=== PATIENT | male | born 2005 | race Caucasian/White ===

== ENCOUNTER 2025-01-22 20:01 | Emergency (ER) | payer BC, SELFPAY ==
[2025-01-22 20:02] VITALS: BP 131/84
--- NOTE | 2025-01-22 20:13 | ED.GENMED ---
History of Present Illness
General
Chief Complaint: Musculo-Skeletal Complaint
Source: patient
Exam Limitations: none
Time Seen by Provider: 01/22/25 20:09
Nursing documentation reviewed up to this point in time: agreed with
History of Present Illness
History of Present Illness:
20-year-old male with past medical history of GERD, asthma, ADHD, who presents emergency department today with concerns of right foot pain. Patient [place] [facility] [place] [place]. Patient
reports that in the game, you had to kick a soft ball as hard as possible to measure strength. Patient reports that when he kicked the ball, he immediately felt sharp pain in his foot. Patient states that when he went home and noticed that his
pain increased. Patient now has swelling in his right foot. He is under able to bear weight without significant pain. Patient currently does not have a orthopedics he follows with but states that he will find 1 associate with his healthcare
network. He denies any other injuries. He denies any falls. He did not take anything for the pain.
Past History
Past History
ED Past Medical History: None
ED Past Surgical History: None
Social History
Tobacco: Smoker (Vapor cigarette)
Alcohol: Occasional
Drug: Marijuana
Review of Systems
Review of Systems
All Other Systems: ROS reviewed and negative except as documented in HPI and ROS
Phy Exam
Physical Exam
Physical Exam:
General: Patient is well appearing and in no acute distress; non-toxic
Skin: Warm and dry, no rashes or lesions
Head: Normocephalic, atraumatic
Eyes: Sclera non-icteric. EOMs intact.
Cardiac: Regular rate
Peripheral Vascular: 2+ DP and PT pulses on the right
Musculoskeletal: Tenderness to palpation over the dorsum of the right foot. No palpable bony deformity. Pain to right lateral ankle with varus stress.
Neuro: CN II-XII intact, no focal neurologic deficits. Sensation intact.
Psychiatric: Appropriate mood and affect.
Course
Orders/Labs/Results
Orders:
Orders
01/22/25 20:44
Ketorolac [Toradol] 15 mg IM NOW STA
CR Ankle - Right Min 3 Views * Urgent
Reason For Exam: right ankle pain
CR Foot - Right Min 3 Views Urgent
Reason For Exam: right foot pain
01/22/25 21:38
Crutches-Treatment ONCE
Ortho Boot Right- Treatment ONCE
Short or tall?: Short
Vital Signs
Initial and Last Documented VS:
Initial Vital Signs
Temp Pulse Resp BP Pulse Ox
97.5 F 101 18 131/84 100
01/22/25 20:02 01/22/25 20:02 01/22/25 20:02 01/22/25 20:02 01/22/25 20:02
Last Documented Vital Signs
Temp Pulse Resp BP Pulse Ox
97.5 F 101 18 131/84 100
01/22/25 20:02 01/22/25 20:02 01/22/25 20:02 01/22/25 20:02 01/22/25 20:02
MDM/Problems Addressed
Differential Diagnosis Includes:
Metatarsal fracture, phalanx fracture, ankle sprain, contusion
MDM/Problems Addressed:
20-year-old male with past medical history of GERD, asthma, ADHD, who presents emergency department today with concerns of right foot pain. This started after kicking an ball of an arcade machine. He is unable to bear weight without a lot of pain.
Physical exam he does have swelling in his right foot and tenderness to palpation over the dorsum. He does have some ankle pain with range of motion. His ankle x-ray and foot x-ray was negative for any acute fracture or dislocation. Patient was
placed in Ortho boot and given crutches, return precautions discussed. Patient reports that he has been follow-up with an orthopedist within his network. Patient stable for discharge. Toradol did improve his symptoms.
*Critical Care Note
Total Time (30-74mins, 75-104mins- exclusive of procedures): Not Applicable
ED Attending Note
-
Portions of this chart may have been created with voice recognition software.� Occasional wrong word or��sound alike� substitutions may have occurred due to the inherent limitations of voice recognition software.
Discharge Plan
Departure
Patient Disposition: Home (Routine Discharge)
Date of Disposition: 01/22/25
Time of Disposition: 22:05
Patient with high blood pressure during this ER visit?: Yes
Condition: Good
Discharge Problem:
Acute foot pain, High ankle sprain
Instructions: Ankle sprain, How to Use Crutches, BLOOD PRESSURE
Prescriptions:
New
cyclobenzaprine 15 mg capsule,extended release 24hr
15 mg PO DAILY Qty: 8 0RF
No Action
guanfacine [Tenex] 1 MG tablet
2 mg PO DAILY
famotidine [Pepcid AC] 10 MG tablet,chewable
10 mg PO PRN PRN (Reason: reflux)
Focalin XR
25 mg PO DAILY
Probiotic
1 tab PO DAILY
Referrals:
NONE,* [Family Provider] -
Stand Alone Forms: Return to Work
Activity Restrictions/Additional Instructions:
Please call your orthopedist to schedule a follow-up appointment.
You can take ibuprofen as needed for pain. You can take 600 to 800 mg every 6 hours. Please do not exceed 3200 mg/day.
Please keep your foot elevated at home, you can apply ice to the area as well.
PLEASE RETURN EMERGENCY DEPARTMENT SHOULD YOU DEVELOP ANY ACUTE WORSENING OF YOUR SYMPTOMS, INABILITY TO AMBULATE, LOSS OF SENSATION IN YOUR RIGHT LOWER EXTREMITY, PALLOR, OR ANY OTHER SIGNS OR SYMPTOMS WORRISOME TO YOU.
Interventions
Interventions:
*Risk Screen - Suicide Last Done: 01/22/25 20:24
*General Assessment Last Done: 01/22/25 20:02
*Neglect/Abuse Screening Last Done: 01/22/25 20:02
*ED- Fall Risk Assessment Last Done: 01/22/25 20:24
*ED COVID-19 Vaccine History Last Done: 01/22/25 20:24
*Nursing Disposition Last Done: 01/22/25 22:19
ED-Musculoskeletal Assessment Last Done: 01/22/25 20:24
Discharge Date and Time
Discharge Date/Time: 01/22/25 22:28
Print Language: MICRONESIAN
[2025-01-22 20:24] VITALS: BMI 25.6
[2025-01-22] MEDS: TORADOL 15 MG IM (21:02)
== END 2025-01-22 22:28 | disposition home or self-care (01) ==
LOC: EMR 20:01
PROVIDERS: EMERGENCY PHYSICIAN Student in an Organized Health Care Education/Training Program
DX: S93.401A Sprain of unspecified ligament of right ankle, initial encounter (principal); M79.671 Pain in right foot; X58.XXXA Exposure to other specified factors, initial encounter; Y93.89 Activity, other specified; Y92.89 Other specified places as the place of occurrence of the external cause; K21.9 Gastro-esophageal reflux disease without esophagitis; F90.9 Attention-deficit hyperactivity disorder, unspecified type; J45.909 Unspecified asthma, uncomplicated; F17.290 Nicotine dependence, other tobacco product, uncomplicated
CPT/HCPCS: 99284; 29515; 96372; 73610; 73630